=== PATIENT | female | born 1985 | race Caucasian/White ===

== ENCOUNTER 2021-07-10 19:59 | Emergency (ER) | payer OTHER ==
[~2021-07-10] VITALS: Ht 162.6 cm; Wt 143.3 kg
[2021-07-10] MEDS ORDERED: LIRA0.6P SQ (20:30)
[2021-07-10] MEDS ORDERED: LORA-53 PO (20:30)
[2021-07-10] MEDS ORDERED: MELA1TAB40 PO (20:30)
[2021-07-10] MEDS ORDERED: LISI2.5T PO (20:30)
[2021-07-10] MEDS ORDERED: METF-397 PO (20:30)
[2021-07-10] MEDS ORDERED: CETI5TAB9 PO (20:30)
--- NOTE | 2021-07-10 21:02 | ED GI ---
General Chief Complaint: Rect Problems Stated Complaint: BOWEL PROBLEMS Nursing Triage Note: c/o rectal pain x6 months reports worse x5 days. states hx internal hemorrhoids Allergies and Home Medications Allergies Coded Allergies: Penicillins (Verified Allergy, Unknown, 07/10/21) Sulfa (Sulfonamide Antibiotics) (Verified Allergy, Unknown, 07/10/21) Home Medications Lisinopril 2.5 Mg Tablet, Unknown Dose PO DAILY, (Reported) Last Action: New Order Past Lzoohvx-Fxmldt-Qeundt Hx Patient Social History Tobacco Use?: No Substance use?: No Alcohol Use?: Yes Alcohol Frequency: Rarely Pt feels they are or have been: No Past Medical History Surgery/Hospitalization HX: colonoscopy Last Menstrual Period: Jun 19, 2021 Physical Exam Vital Signs Vital Signs - First Documented 07/10/21 20:20 Temp 36.8 Pulse 91 Resp 18 B/P (MAP) 137/93 (108) Pulse Ox 96 O2 Delivery Room Air Capillary Refill : Less Than 3 Seconds Height/Weight/BMI Height: '" Weight: lbs. oz. kg; 54.00 BMI Method: Progress/Results/Core Measures Results/Orders Lab Results Laboratory Tests Test 07/10/21 21:15 07/10/21 21:21 Range/Units Urine Color YELLOW Urine Clarity CLEAR Urine pH 6.0 5-9 Urine Specific [place] >=1.030 1.016-1.022 Urine Protein NEGATIVE NEGATIVE Urine Glucose (UA) NEGATIVE NEGATIVE Urine Ketones TRACE H NEGATIVE Urine Nitrite NEGATIVE NEGATIVE Urine Bilirubin NEGATIVE NEGATIVE Urine Urobilinogen 0.2 < = 1.0 MG/DL Urine Leukocyte Esterase NEGATIVE NEGATIVE Urine RBC (Auto) NEGATIVE NEGATIVE Urine RBC NONE /HPF Urine WBC 2-5 /HPF Urine Squamous Epithelial Cells 5-10 /HPF Urine Crystals PRESENT H /LPF Urine Amorphous Sediment MOD MARLENE URATES H /LPF Urine Bacteria TRACE /HPF Urine Casts NONE /LPF Urine Mucus LARGE H /LPF Urine Culture Indicated NO White Blood Count 8.6 4.3-11.0 10^3/uL Red Blood Count 4.62 3.80-5.11 10^6/uL Hemoglobin 13.8 11.5-16.0 g/dL Hematocrit 42 35-52 % Mean Corpuscular Volume 91 80-99 fL Mean Corpuscular Hemoglobin 30 25-34 pg Mean Corpuscular Hemoglobin Concent 33 32-36 g/dL Red Cell Distribution Width 13.4 10.0-14.5 % Platelet Count 186 130-400 10^3/uL Mean Platelet Volume 11.2 9.0-12.2 fL Immature Granulocyte % (Auto) 0 % Neutrophils (%) (Auto) 45 42-75 % Lymphocytes (%) (Auto) 44 12-44 % Monocytes (%) (Auto) 7 0-12 % Eosinophils (%) (Auto) 4 0-10 % Basophils (%) (Auto) 1 0-10 % Neutrophils # (Auto) 3.8 1.8-7.8 10^3/uL Lymphocytes # (Auto) 3.7 1.0-4.0 10^3/uL Monocytes # (Auto) 0.6 0.0-1.0 10^3/uL Eosinophils # (Auto) 0.3 0.0-0.3 10^3/uL Basophils # (Auto) 0.1 0.0-0.1 10^3/uL Immature Granulocyte # (Auto) 0.0 0.0-0.1 10^3/uL Percent Immature Platelet Fraction 9.2 H 0.0-7.6 % Sodium Level 139 135-145 MMOL/L Potassium Level 4.4 3.6-5.0 MMOL/L Chloride Level 106 98-107 MMOL/L Carbon Dioxide Level 23 21-32 MMOL/L Anion Gap 10 5-14 MMOL/L Blood Urea Nitrogen 14 7-18 MG/DL Creatinine 0.83 0.60-1.30 MG/DL Estimat Glomerular Filtration Rate 78 BUN/Creatinine Ratio 17 Glucose Level 92 70-105 MG/DL Calcium Level 9.9 8.5-10.1 MG/DL Serum Test, Qualitative NEGATIVE NEGATIVE My Orders Orders - ESVIN HARVEY DO Ed Iv/Invasive Line Start (07/10/21 21:03) Ct Abdomen/Pelvis W (07/10/21 21:03) Basic Metabolic Panel (07/10/21 21:03) Cbc With Automated Diff (07/10/21 21:03) Hcg,Qualitative Serum (07/10/21 21:03) Ua Culture If Indicated (07/10/21 21:03) Ketorolac Injection (Toradol Injection) (07/10/21 21:03) Iohexol Injection (Omnipaque 350 Mg/Ml 1 (07/10/21 22:45) Received Contrast (Hold Metformin- Contr (07/10/21 22:45) Ns (Ivpb) (Sodium Chloride 0.9% Ivpb Bag (07/10/21 22:45) Medications Given in ED Current Medications Medications Dose Ordered Sig/[place] Route Start Time Stop Time Status Last Admin Dose Admin Iohexol 100 ml ONCE ONCE IV 07/10/21 22:45 07/10/21 22:46 DC 07/10/21 22:42 100 ML Sodium Chloride 80 ml ONCE ONCE IV 07/10/21 22:45 07/10/21 22:46 DC 07/10/21 22:42 80 ML Vital Signs/I&O 07/10/21 20:20 Temp 36.8 Pulse 91 Resp 18 B/P (MAP) 137/93 (108) Pulse Ox 96 O2 Delivery Room Air Blood Pressure Mean: 108 Departure Impression Primary Impression: Hemorrhoids Disposition: HOME, SELF-CARE Condition: Stable Departure-Patient Inst. Decision time for Depature: 23:05 Referrals: CHEO VILLARREAL DO [facility] [place] Patient Instructions: Hemorrhoids ED, How to Do a Sitz Bath Add. Discharge Instructions: TAKE MIRALAX DAILY INCREASE YOUR WATER AND FIBER INTAKE FOLLOW UP WITH DR. VILLARREAL, GENERAL SURGEON, THIS WEEK FOR FURTHER CARE--CALL IN THE MORNING TO SCHEDULE APPOINTMENT KEEP YOUR APPOINTMENT WITH [facility] TOMORROW SCHEDULED All discharge instructions reviewed with patient and/or family. Voiced understanding. Scripts Ketorolac Tromethamine (Ketorolac Tromethamine) 10 Mg Tablet 10 MG PO Q6H for Pain, #15 TAB Prov: ESVIN HARVEY DO 07/10/21 Hydrocortisone (Anusol-Hc) 30 Gm Cream..g. 30 GM RC TID for Pain, #1 TUBE Prov: ESVIN HARVEY DO 07/10/21 Hydrocortisone Acetate (Anusol-Hc) 25 Mg Supp.rect 25 MG RC TID, #10 SUPP.RECT Prov: ESVIN HARVEY DO 07/10/21 ESVIN HARVEY DO Jul 10, 2021 21:02
[2021-07-10] MEDS ORDERED: KETOROLAC 30 MG/ML VIAL IVP STA (21:03)
[2021-07-10 21:33] LABS: BILIRUBIN,URINE NEGATIVE (NEGATIVE); CLARITY,URINE CLEAR; COLOR,URINE YELLOW; GLUCOSE, URINE (UA) NEGATIVE (NEGATIVE); KETONES,URINE TRACE (NEGATIVE); LEUKOCYTE ESTERASE ,URINE NEGATIVE (NEGATIVE); NITRITE,URINE NEGATIVE (NEGATIVE); PROTEIN,URINE NEGATIVE (NEGATIVE)
[2021-07-10 21:36] LABS: BASOPHILS # (AUTO) 0.1 10^3/uL (0.0-0.1); BASOPHILS % (AUTO) 1 % (0-10); MONOCYTES % (AUTO) 7 % (0-12)
[2021-07-10 21:38] LABS: EOSINOPHILS # (AUTO) 0.3 10^3/uL (0.0-0.3); EOSINOPHILS % (AUTO) 4 % (0-10); HEMATOCRIT 42 % (35-52); HEMOGLOBIN 13.8 g/dL (11.5-16.0); LYMPHOCYTES # (AUTO) 3.7 10^3/uL (1.0-4.0); LYMPHOCYTES % (AUTO) 44 % (12-44); MEAN CORPUSCULAR HEMOGLOBIN 30 pg (25-34); MEAN CORPUSCULAR HGB CONC 33 g/dL (32-36); MEAN CORPUSCULAR VOLUME 91 fL (80-99); MEAN PLATELET VOLUME 11.2 fL (9.0-12.2); MONOCYTES # (AUTO) 0.6 10^3/uL (0.0-1.0); NEUTROPHILS # (AUTO) 3.8 10^3/uL (1.8-7.8); NEUTROPHILS % (AUTO) 45 % (42-75); PLATELET COUNT 186 10^3/uL (130-400); WHITE BLOOD COUNT 8.6 10^3/uL (4.3-11.0)
[2021-07-10 21:43] LABS: BACTERIA,URINE TRACE /HPF
[2021-07-10 21:44] LABS: AMORPHOUS SEDIMENT,UR MOD AMOR URATES /LPF
[2021-07-10 21:46] LABS: POTASSIUM 4.4 MMOL/L (3.6-5.0)
[2021-07-10 21:47] LABS: CALCIUM 9.9 MG/DL (8.5-10.1)
[2021-07-10 21:51] LABS: CREATININE SERUM 0.83 MG/DL (0.60-1.30)
[2021-07-10] MEDS ORDERED: HOLD METFORMIN - RECEIVED CONTRAST 20 ML VIAL IV SCH (22:45)
[2021-07-10] MEDS ORDERED: IOHEXOL 350 MG/ML 100 ML (OMNIPAQUE 350) VIAL IV ONE (22:45)
[2021-07-10] MEDS ORDERED: NS 100 ML (IVPB) BAG IV ONE (22:45)
--- NOTE | 2021-07-10 23:01 | Diagnostic Imaging Report ---
INDICATION: Pelvic pain, difficulty urinating. TECHNIQUE: Multiple contiguous axial images were obtained through the abdomen and pelvis after administration of intravenous contrast. Auto Exposure Controls were utilized during the CT exam to meet ALARA standards for radiation dose reduction. All CT scans use one or more of the following dose optimizing techniques: automated exposure control, MA and/or KvP adjustment based on patient size and exam type or iterative reconstruction. COMPARISON: There is no prior study for comparison. The visualized portions of the lung bases are clear. There is no pleural fluid collection. There is no free intraperitoneal air. The liver shows mild diffuse low-density change compatible with fatty infiltration. There is no focal liver lesion. The spleen, adrenals and pancreas appear normal. The kidneys bilaterally are unremarkable. There is no hydronephrosis or renal mass. There is no retroperitoneal mass or adenopathy. There is no ascites or abnormal fluid question. Visualized bowel loops show no sign of obstruction or bowel wall thickening. There is an irregular density in the left adnexa measuring about 2.1 cm. This can be followed sonographically. There is no free fluid. IMPRESSION: There is mild fatty infiltration of the liver. There is no evidence of abscess or abnormal fluid collection. There is a slightly irregular lesion in the left adnexa measuring 2.1 cm. This finding can be followed sonographically. Dictated by: Dictated on workstation # [id number]
[2021-07-10] MEDS ORDERED: HYDR30CR71 RC (23:07)
[2021-07-10] MEDS ORDERED: KETO10TA PO (23:07)
[2021-07-10] MEDS ORDERED: HYDR25SU28 RC (23:07)
[2021-07-10 23:14] VITALS: BP 125/89
[2021-07-10] MEDS ORDERED: LIDOCAINE 2% VISCOUS 15 ML UDC MM ONE (23:15)
== END 2021-07-10 23:15 | disposition home or self-care (01) ==
LOC: ER 20:04
DX: K64.9 Unspecified hemorrhoids (principal)
CPT/HCPCS: 36415; 74177; 80048; 81000; 84703; 85025

== ENCOUNTER → 2023-08-28 | Outpatient (CLI) | payer OTHER ==
[~2023-08-28] MED LIST: CETI5TAB10 PO; HYDR25SU28 RC; HYDR30CR71 RC; KETO10TA PO; LIRA0.6P SQ; LISI2.5T13 PO; LORA-1389 PO; MELA1TAB40 PO; METF-397 PO
--- NOTE | 2023-08-28 14:18 | Diagnostic Imaging Report ---
PROCEDURE: US Non-ob pelvis comp/trans. TECHNIQUE: Multiple Real-time grayscale images were obtained of the pelvis in various projections endovaginally. Transabdominal imaging was also performed. INDICATION: Abnormal uterine bleeding. COMPARISON: None. FINDINGS: Uterus is anteverted and measures 7.8 x 4.2 x 3.5 cm. Myometrium is diffusely heterogeneous. Endometrial stripe is within normal limits and measures 2 mm in AP thickness. Visualized portions of the cervix are unremarkable. No adnexal masses or free fluid are seen. Ovaries have a normal sonographic appearance. Right ovary measures 3.4 x 1.9 x 2.3 cm and left measures 3.2 x 1.7 x 1.9 cm. IMPRESSION: Heterogeneous appearance of the uterine myometrium. This may be exaggerated by poor acoustic window related to patient body habitus. Fibroid uterus and adenomyosis may have a similar appearance. Correlation with pelvic MRI may be of benefit. Dictated by: Dictated on workstation # [id number]
== END ==
LOC: RAD 09:43
PROVIDERS: ATTEND Obstetrics & Gynecology
DX: N93.9 Abnormal uterine and vaginal bleeding, unspecified (principal)
CPT/HCPCS: 76830; 76856